=== PATIENT | male | born 1970 | race Caucasian/White ===

== ENCOUNTER 2016-12-15 09:57 | Emergency (ER) | payer OTHER ==
[2016-12-15 13:40] VITALS: BP 138/100
--- NOTE | 2016-12-15 13:46 | Emergency Department Report ---
Entered by DIONY TAVARES, acting as scribe for CHRISTEL SANTIAGO PA. HPI - General Chief Complaint: Sore Throat Time Seen by Provider: 12/15/16 11:18 - HPI HPI: 46 y/o male pressents to the ED c/o sore throat x 1 week. Associated symptoms include cough and nasal congestion but denies fever, chills, nausea and vomiting. Pain is described as 9/10 on a severity scale. Sick contact ( had similar symptoms). No alleviating factors despite taking OTC meds and aggravated with eating. NKDA. ED Past Medical Hx - Past Medical History Previous Medical History?: No - Surgical History Past Surgical History?: No - Social History Smoking Status: Never Smoker Substance Use Type: None - Medications Home Medications: Home Medications Medication Instructions Recorded Confirmed Last Taken Type Amoxicillin/K Clav Tab [Augmentin 1 tab PO Q12HR #20 tab 12/15/16 Unknown Rx 875 mg] Cetirizine HCl [ZyrTEC] 10 mg PO QDAY #14 capsule 12/15/16 Unknown Rx Fluticasone [Flonase] 1 spray NS QDAY #1 bottle 12/15/16 Unknown Rx Ibuprofen [Motrin] 600 mg PO Q8H PRN #12 tablet 12/15/16 Unknown Rx ED Review of Systems ROS: Stated complaint: SORE THROAT Other details as noted in HPI Comment: All other systems reviewed and negative Constitutional: denies: chills, fever ENT: throat pain, congestion Respiratory: cough Gastrointestinal: denies: nausea, vomiting Physical Exam - Physical Exam Vital Signs: Vital Signs 12/15/16 10:14 Temperature 99.3 F Pulse Rate 90 Respiratory 18 Rate Blood Pressure 139/102 O2 Sat by Pulse 99 Oximetry General: Head: Normocephalic, atraumatic Mouth: Moist, no pharyngeal exudate, erythema. Uvula is midline and oral airway is patent. No facial swelling. No peritonsillar abscesses. Nose: Normal external appearance, no drainage. Maxillary and frontal sinuses nontender to palpation. Neck: Supple, no C-spine tenderness, no tracheal deviation. Nontender to palpation. Adenopathy. Ears: Bilateral TMs ar without any redness, or drainage, congested. Bilateral EAC without any redness, swelling, or drainage. Abdomen: Soft, nontender to palpation in all quadrants, normal bowel sounds in all quadrants and negative CVA tenderness bilaterally. Eyes: Bilateral pupils equal and reactive to light, bilateral EOM intact. Bilateral sclera and conjunctiva without injection. Normal accommodation. Lungs: Clear to auscultation bilaterally. No wheezes, rhonchi, or rales noted. No accessory muscle use. No increased work of breathing. Extremities: No CCE. +2 pulses. No neurovascular compromise. No clubbing or cyanosis. Cardiovascular: S1-S2, regular rate, regular rhythm. No murmurs. Skin: Clean, dry, and intact with no rash and no lesions. Psych: Normal mood and behavior. ED Course Vital Signs 12/15/16 10:14 Temperature 99.3 F Pulse Rate 90 Respiratory 18 Rate Blood Pressure 139/102 O2 Sat by Pulse 99 Oximetry Vital Signs 12/15/16 12/15/16 10:14 13:34 Temperature 99.3 F Pulse Rate 90 Respiratory 18 Rate Blood Pressure 139/102 Blood Pressure 130/100 [Left] O2 Sat by Pulse 99 Oximetry - Reevaluation(s) Reevaluation #1: 12/15/16 13:35 Patient blood pressure elevated in triage here to 139/102 and he does not have any history of high blood pressure. Manual blood pressure is 130/100. Patient instructed to keep a log of his blood pressure and follow up with his primary care physician in 3-5 days. ED Medical Decision Making - Medical Decision Making ED course: Patient here complaining of sore throat that started 10 days ago. He reports that he has occasional fever and chills. He also reports that he has some nasal congestion. Denies any shortness of breath or chest pain pain to his throat is 8 out of 10 and sore worse with swallowing. Rasw-bic-gqkoyre pain medication is not helping. Denies any drooling. Patient found to have sinusitis and he had enlarged lymph nodes were red throat without exudate. I explained to patient that I'll put him on antibiotics which will cover his sinus infection but will also take care of his sore throats if he has an infection. Patient also informed that his blood pressure was elevated today and he will need to keep a log of his blood pressure and take to his primary care doctor visits for further evaluation. He denies any history of high blood pressure. Diagnosis and treatment plan explained to patient and he voiced understanding . Discharged home in stable condition Assessment/plan 1. Acute pharyngitis 2. Acute sinusitis 3 elevated blood pressure without history of hypertension Pt discharged home with family and given prescription for Augmentin and Motrin. He was instructed to take his blood pressure daily and will reports his primary care physician for further evaluation. Critical care attestation.: If time is entered above; I have spent that time in minutes in the direct care of this critically ill patient, excluding procedure time. ED Disposition Clinical Impression: Elevated blood pressure reading without diagnosis of hypertension Acute pharyngitis Qualifiers: Pharyngitis/tonsillitis etiology: unspecified etiology Qualified Code(s): J02.9 - Acute pharyngitis, unspecified Acute sinusitis Qualifiers: Sinusitis location: unspecified location Recurrence: not specified as recurrent Qualified Code(s): J01.90 - Acute sinusitis, unspecified Disposition: DC- TO HOME OR SELFCARE Is pt being admited?: No Does the pt Need Aspirin: No Condition: Stable Instructions: Pharyngitis (ED), Sinusitis (ED), Hypertension (ED) Additional Instructions: Your blood pressure was elevated today. Keep a log of your blood pressure and take to your PCP visit Follow up with Your PCP in 3-5 days Take medication as prescribed Gargle with warm salt water Zyrtec and flonase Prescriptions: Amoxicillin/K Clav Tab [Augmentin 875 mg] 1 tab PO Q12HR #20 tab Cetirizine HCl [ZyrTEC] 10 mg PO QDAY #14 capsule Fluticasone [Flonase] 1 spray NS QDAY #1 bottle Ibuprofen [Motrin] 600 mg PO Q8H PRN #12 tablet PRN Reason: Pain Referrals: PRIMARY CARE,MD [Primary Care Provider] - 3-5 Days This documentation as recorded by the CHAITANYA gonzáles ELIZABETH,accurately reflects the service I personally performed and the decisions made by ,CHRISTEL SANTIAGO PA.
== END 2016-12-15 14:01 | disposition home or self-care (01) ==
LOC: ED 09:57
DX: J01.90 Acute sinusitis, unspecified (principal); J02.9 Acute pharyngitis, unspecified; I10 Essential (primary) hypertension
CPT/HCPCS: 99282